=== PATIENT | male | born 1990 ===

== ENCOUNTER 2024-09-06 11:41 | Outpatient (CLI) | payer SELFPAY ==
--- OUTSIDE RECORDS SUMMARY | 2024-09-06 12:01 | XMS_ITS | Clinical Summary ---
Author Organization [facility] Address [address] [place] [address] Care Team Providers Care Mate Relief Name Role Phone Toño Garland MD Primary Care Provider Source Comments [facility],non-owned Affiliates and Associated Physician Practices is amultiple site organization consisting of ambulatory clinics and hospital sitesin [place], [place], [place] and [place]. This disclosure is being madepursuant to the Care Everywhere program and may not contain all information available regarding this patient. Last updated 18.[facility] Allergies No known active allergies Medications * Be aware that medications may not be up to date on this document. Alwaysverify current medications with the patient. Medication Sig Dispensed Refills Start Date End Date Status sulfamethoxazole-trim ethoprim (Bactrim DS; Septra DS) 800-160 MG tablet Take 1 (one) tablet by mouth 2 times daily 60 tablet 1 07/19/2022 Active ALPRAZolam (Xanax) 0.25 MG tablet Take 1 (one) tablet by mouth 3 times daily 40 tablet 07/19/2022 Active Active Problems Problem Noted Date Diagnosed Date Anxiety 07/19/2022 Class 1 obesity without seri ous comorbidity with body mass index (BMI) of 34.0 to 34.9 in adult 07/19/2022 Social History Tobacco Use Types Packs/Day Years Used Date Smoking Tobacco: Never Smokeless Tobacco: Never Alcohol Use Standard Drinks/Week Comments Yes 0 (1 standard drink = 0.6 oz pur e alcohol) PHQ-2 Answer Date Recorded PHQ2 TOTAL SCORE 2 07/19/2022 Sex and Gender Information Value Date Recorded Sex Assigned at Not on file Gender Identity Not on file Sexual Orientation Not on file Last Filed Vital Signs Vital Sign Reading Time Taken Comments Blood Pressure 122/76 04/13/2023 3:15 PM [employer] Pulse 108 04/13/2023 3:15 PM [employer] Temperature 36.4 C (97.6 F) 04/13/2023 3:15 PM [employer] Respiratory Rate 14 04/13/2023 3:15 PM [employer] Oxygen Saturation 98% 04/13/2023 3:15 PM [employer] Inhaled Oxygen Concentration - - Weight 112.9 kg (249 lb) 04/13/2023 3:15 PM [employer] Height 180.3 cm (5' 11 ) 04/13/2023 3:15 PM [employer] Body Mass Index 34.73 04/13/2023 3:15 PM [employer] Plan of Treatment Health Maintenance Due Date Last Done Comments HIV SCREENING 2006 HEPATITIS C SCREENING 05/29/2009 DTAP/TDAP/TD VACCINES (1 - Tdap) 2010 HEPATITIS B VACCINE (1 of 3 - 19+ 3-dose series) 2010 COVID-19 VACCINE (4 - 2023-2 5 season) 2024 05/18/2021, 09/23/2020, 09/01/2020 INFLUENZA VACCINE (#1) 2024 DEPRESSION SCREENING 06/05/2024 07/19/2022 ZOSTER VACCINE (1 of 2) 2041 HIB VACCINE Aged Out No longer eligi ble based on patient's age to complete this topic HPV VACCINE Aged Out No longer eligi ble based on patient's age to complete this topic MENINGOCOCCAL (Group B) VACCINE SHARED DECISION-MAKING Aged Out No longer eligible based on patient's age to complete this topic MENINGOCOCCAL GROUPS A/C/Y/W VACCINE Aged Out No longer eligible b ased on patient's age to complete this topic PNEUMOCOCCAL VACCINE Aged Out No long er eligible based on patient's age to complete this topic Care Teams Mate Relief Relationship Specialty Start Date End Date To[place] [address] [id number] PCP - General Internal Medicine 06/28/22
--- OUTSIDE RECORDS SUMMARY | 2024-09-06 12:01 | XMS_ITS | Continuity of Care Document ---
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 [address] , [address], [place], [place], [id number], [place]. tel:[phone] Family History Family Member Type Diagnosis Age At Onset No Information Payers Payer name Insurance type Covered republican ID Authoriza tion(s) No Information Social History Type Description Quantity Date Captured Comments Sex Male Smoking Status No Information Chief Complaint And Reason For Visit No Information Reason For Referral Reason For Referral No Information History Of Present Illness Encounter Date Complaint History Of Prese nt Illness No Information Functional Status Date Functional Assessmen t No Information Instructions Date Instruction Additional Infor mation No Information Assessments Type Assessment Date No Information Patient Care Teams Name Effective Dates (start - stop) Status Members No Information
== END 2024-09-06 11:42 | disposition home or self-care (01) ==
PROVIDERS: Visit Provider Obstetrics & Gynecology
DX: Z13.79 Encounter for other screening for genetic and chromosomal anomalies (principal)
CPT/HCPCS: 99199; 36415